=== PATIENT | male | born 1995 | race Caucasian/White ===

== ENCOUNTER 2022-07-24 20:08 | Emergency (ER) | payer BC, SELFPAY ==
[2022-07-24 20:08] VITALS: BP 122/68; PULSE 71; RESP 15; TEMP 36.1; O2SAT 100; BMI 33.9
--- NOTE | 2022-07-24 20:29 | ED.VIS.LOWEX ---
HPI History of Present Illness Chief Complaint: Lower Extremity Injury Detail of Chief Complaint: Subluxed/dislocated left patella Informant: patient Occured/Mechanism Mechanism/Context: Yes blunt trauma Comment: Patient fell and dislocated left patella. Onset/Context/Timing Context: Sudden Onset Timing: Intermittent Quality of Pain: Dull and Aching Current Severity: Mild Maximum Severity: Severe Worsened by: Dislocation of left patella Relieved by: Reduction of dislocated left patella Associated Symptoms Associated Symptoms: Positive for Loss of Funtion; Negative for Parasthesia or Weakness Narrative Tetanus Immunization: <5 years Prior similar symptoms: Yes Recent Illness/Hospitalization: No PFSH PFSH Medical History no medical history no medical history Allergy/AdvReac Type Severity Reaction Status Date / Time No Known Allergies Allergy Verified 07/24/22 20:12 Surgical History H/O knee surgery Social History (Updated 07/24/22 @ 20:[address] Edis Riley MD) household members: none Smoking Status: Never smoker substance use type: does not use ROS ROS ED Constitutional Constitutional ED: Denies chills, fever(s), subjective or sweats Musculoskeletal Musculoskeletal: Reports other Details: Left knee pain ; Denies arthralgias, back pain, myalgias or neck pain Integumentary Denies Abrasions or rash Neurologic Neurologic: Denies paresthesias or weakness Psychiatric Psychiatric: Denies anxiety or depression EXAM Physical Exam Const Vital Signs: 07/24/22 20:08 Temperature 97.0 F L Temperature Source Temporal Pulse Rate 71 Respiratory Rate 15 Blood Pressure 122/68 H Blood Pressure Mean 86 Pulse Ox 100 Oxygen Delivery Method Room Air Positive well nourished, well developed and obese General Appearance ED: well developed and NAD Nutritional Appearance: obese HEENT Reports moist mucous membranes normocephalic and atraumatic Eyes PERRL Eyes Narrative: Extract muscle intact. Sclera is anicteric. Neck full ROM Resp normal respiratory effort Cardio regular rate and regular rhythm Extremity Negative for normal to inspection Extremity Narrative: Bilateral scars noted that are well-healed. Full active range of motion left leg. He is able to extend to 180 degrees against gravity. There is no laxity with varus valgus stress testing. Leena's test is negative. Modified Priscilla's test is negative. Patient has a positive patella apprehension test. There is significant laxity of the patella on the left side. There is swelling of the left knee with a small effusion. Neuro oriented x3, CN's II-XII intact bilaterally and moves all extremities Sensorium / Orientation: alert Motor Exam: strength 5/5 throughout Deep Tendon Reflexes: Lt Brachioradialis (C6): 2+ and Rt Patellar (L4): 2+ Deep Tendon Reflexes Back: Rt Patellar (L4): 2+ Psych mental status grossly normal Skin no wounds Lesions: no lesions Rashes: no rashes MDM MDM MDM Narrative Medical decision making narrative: History is consistent with dislocation and relocation of left patella. X-ray was obtained to rule out associated ayse fracture. Radiography Diagnostic Testing: Clinical Impression(s) from Imaging Studies Knee X-Ray 07/24/22 20:36 IMPRESSION: There are findings suggesting a patella gary. Electronically Signed: Flaquito Madrigal MD at 20:55 EDT Reading Location ID and State: [facility] / [place] , Service support , 4 views were obtained of the left knee. There is no evidence of fracture, subluxation or dislocation. There is slight soft tissue swelling noted. 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 Discharge Plan Triage Chief Complaint: Lower Extremity Injury ED Provider: Edis Riley Dx/Rx/DC Orders Clinical Impression: Other dislocation of left patella, initial encounter Instructions: ED Patellar Dislocation/Subluxation Primary Care Provider: Care Physician,No Primary Referrals: Aime Mitchell DO [Med Staff - Active Staff] - 5-7 Days Care Physician,No Primary [Primary Care Provider] - Activity Restrictions/Additional Instructions: You are referred to an orthopedist in the area or you may follow-up with the orthopedic surgeon who repaired your chronic patella dislocation Disposition Disposition: Home, Self Care
--- NOTE | 2022-07-24 20:36 | RAD_ITS ---
STUDY: XR Knee Complete 4 Views or More 07/24/2022 8:54 PM REASON FOR EXAM: Male, 27 years old. FALL, INJURY TECHNIQUE: XR Knee Complete 4 Views or More LEFT COMPARISON: None FINDINGS: Normal visualized distal femur. Normal visualized proximal tibia and fibula. Normal proximal tibiofibular articulation. 2 middle screws attaching the region of the tibial tubercle. Normal medial femorotibial compartment. Normal lateral femorotibial compartment. Normal patellofemoral articulation. There are findings suggesting a patella gary. The soft tissue structures are unremarkable. RAD/Knee 4 or More Views IMPRESSION: There are findings suggesting a patella gary. Electronically Signed: Flaquito Madrigal MD at 20:55 EDT ,
== END 2022-07-24 21:24 | disposition home or self-care (01) ==
PROVIDERS: Emergency Provider Emergency Medicine; Visit Provider Emergency Medicine
DX: S83.005A Unspecified dislocation of left patella, initial encounter (principal); E66.9 Obesity, unspecified; W19.XXXA Unspecified fall, initial encounter
CPT/HCPCS: 73564; 99283